=== PATIENT | male | born 1945 | race American Indian/Alaskan Native ===

== ENCOUNTER 2017-03-29 07:32 | Inpatient (IN) | payer OTHER ==
[2017-03-29 07:45] VITALS: BMI 26.6
[2017-03-29] MEDS ORDERED: METOCLOPRAMIDE HCL INJECTION 10 MG/2 ML VIAL IVPB ONE ×2 (08:00→13:47)
[2017-03-29] MEDS ORDERED: ASPIRIN 81 MG CHEWABLE TABLETS PO ONE (08:14)
--- NOTE | 2017-03-29 08:14 | PDOC ---
History of Present Illness - General History Source: Patient Exam Limitations: No Limitations - History of Present Illness Initial Comments: 03/29/17 08:45 The patient is a 72 year old male with a significant past medical history of hypertension (on quinapril) and borderline diabetes, who presents to the ER with lightheadedness since 6AM today. Patient states he was tired last night at the end of a busy day. He says he went to sleep without eating supper and woke up at 3AM to eat food. Patient fell back asleep and later woke up at 5AM to take his dog out to the backyard. He states he had an onset of lightheadedness at around 6AM. Patient reports accompanied nausea and several episodes of nonbilious/nonbloody vomiting. states that she tried to take patients BP but the machine was not able to read the pressure. On interview, patient states he continues to feel lightheaded. Patient reports his computer systems technician told the patient he may have a valve issue. Denies syncope Denies chest pain or pressure Denies taking any blood thinners Denies history of NC, catheterization Denies smoking or alcohol NKDA PCP: Dr. Hernández 03/29/17 09:21 <Sahra Langston - Last Filed: 03/29/17 09:26> <Hi Torres - Last Filed: 03/29/17 11:21> - General Chief Complaint: Lightheaded Stated Complaint: BLOOD PRESSURE PROBLEM/DIZZINESS/VOMITING Time Seen by Provider: 03/29/17 07:50 Past History <Sahra Langston - Last Filed: 03/29/17 09:26> - Past Medical History Diabetes: Yes HTN: Yes - Psycho/Social/Smoking Cessation Hx Anxiety: No Suicidal Ideation: No Smoking History: Never smoked Have you smoked in the past 12 months: No Information on smoking cessation initiated: No Hx Alcohol Use: No Drug/Substance Use Hx: No Substance Use Type: None <Hi Torres - Last Filed: 03/29/17 11:21> - Past Medical History Allergies/Adverse Reactions: Allergies Allergy/AdvReac Type Severity Reaction Status Date / Time No Known Allergies Allergy Verified 03/29/17 07:35 Review of Systems - Review of Systems Comments:: 03/29/17 09:15 CONSTITUTIONAL: Absent: fever, no chills, no fatigue EYES: Absent: visual changes ENT: Absent: ear pain, no sore throat CARDIOVASCULAR: Absent: chest pain, no palpitations RESPIRATORY: Absent: cough, no SOB GI: Present: Nausea, vomiting Absent: abdominal pain, no constipation, no diarrhea GENITOURINARY: Absent: dysuria, no frequency, no hematuria MUSCULOSKELETAL: Absent: back pain, no arthralgia, no myalgia SKIN: Absent: rash NEURO: Present; lightheadedness Absent: headache <ShaistaSahra harrison - Last Filed: 03/29/17 09:26> - Review of Systems Constitutional: No: Chills, Fever HEENTM: No: Recent change in vision, Double Vision Respiratory: No: Cough, Shortness of Breath Cardiac (ROS): Yes: Lightheadedness. No: Chest Pain, Edema, Syncope ABD/GI: Yes: Nausea, Vomiting. No: Diarrhea Neurological: No: Headache, Seizure, Ataxia All Other Systems: Reviewed and Negative <Hi Torres - Last Filed: 03/29/17 11:21> *Physical Exam - Vital Signs Last Vital Signs Temp Pulse Resp BP Pulse Ox 97 F L 56 L 16 181/92 100 03/29/17 07:35 03/29/17 08:36 03/29/17 08:36 03/29/17 08:36 03/29/17 08:36 - Physical Exam Comments: 03/29/17 09:16 GENERAL: The patient is awake, alert, and fully oriented, in no acute distress. HEAD: Normal with no signs of trauma. EYES: Pupils equal, round and reactive to light, extraocular movements intact, sclera anicteric, conjunctiva clear with no pallor. ENT: Ears normal, nares patent, oropharynx clear without exudates. Moist mucous membranes. NECK: Normal range of motion, supple without lymphadenopathy, JVD, or masses. LUNGS: Breath sounds equal, clear to auscultation bilaterally. No wheeze/ crackles. HEART: No murmurs, rhythm generates from regular with sinus to regular with bigeminy. No rub. ABDOMEN: Soft/nontender/nondistended. BS wnl. No guarding or rebound. No palpable masses. No hepatosplenomegaly. EXTREMITIES: Normal range of motion, no edema. No clubbing or cyanosis. No cords, erythema, or tenderness. NEUROLOGICAL: Cranial nerves II through XII grossly intact. Normal speech, normal gait. PSYCH: Normal mood, normal affect. SKIN: Warm, Dry, normal turgor, no rashes or lesions noted. <Sahra Langston - Last Filed: 03/29/17 09:26> - Vital Signs Last Vital Signs Temp Pulse Resp BP Pulse Ox 97 F L 34 L 18 197/68 89 L 03/29/17 07:35 03/29/17 07:35 03/29/17 07:35 03/29/17 07:35 03/29/17 07:35 <Hi Torres - Last Filed: 03/29/17 11:21> Heart Score/ECG Review #1 ECG reviewed & interpreted by me at: 07:44 Compared to previous ECG there are: No significant change 03/29/17 08:10 Sinus with PVCs in a bigeminy pattern, overall rate of 60. On the [place] beats, the QTC is within normal limits, there are Q waves in leads 3 and aVF, but there are no acute ST changes. <Hi Torres - Last Filed: 03/29/17 11:21> ED Treatment Course - LABORATORY CBC & Chemistry Diagram: 03/29/17 08:25 03/29/17 08:25 - ADDITIONAL ORDERS Additional order review: 03/29/17 08:25 RBC 4.86 MCV 84.9 MCHC 32.8 RDW 14.7 MPV 8.7 Neutrophils % 78.0 Lymphocytes % 14.8 Monocytes % 5.3 Eosinophils % 1.1 Basophils % 0.8 - Medications Given in the ED: ED Medications Discontinued Medications Generic Name Dose Route Start Last Admin Trade Name Freq PRN Reason Stop Dose Admin Aspirin 162 mg 03/29/17 08:14 03/29/17 08:35 Asa - PO 03/29/17 08:15 162 mg ONCE ONE Administration Metoclopramide HCl 10 mg 03/29/17 08:00 03/29/17 08:35 Reglan Injection - IVPB 03/29/17 08:01 10 mg ONCE ONE Administration <Sahra Langston - Last Filed: 03/29/17 09:26> - LABORATORY CBC & Chemistry Diagram: 03/29/17 08:25 03/29/17 08:25 - RADIOLOGY Radiology Studies Ordered: Category Date Time Status HEAD CT WITHOUT CONTRAST [CT] Stat CT Scan 03/29/17 08:00 Ordered CHEST X-RAY PORTABLE* [RAD] Stat Radiology 03/29/17 07:51 Ordered <Hi Torres - Last Filed: 03/29/17 11:21> Medical Decision Making - Critical Care Time Total Critical Care Time (minutes): 45 Critical Care Statement: The care of this patient involved high complexity decision making to prevent further life threatening deterioration of the patient 's condition and/or to evalute & treat vital organ system(s) failure or risk of failure. - Medical Decision Making 03/29/17 08:10 A portion of this note was documented by scribe services under my direction. I have reviewed the details of the note, within reason, and agree with the documentation with the following case summary and management plan written by me. 72-year-old male with history of only hypertension that is well controlled on an RUBIO inhibitor presents with lightheadedness and near syncope since last night , worse this morning. No associated chest pain or pressure, no focal neurological complaints, no actual syncope. Reports history of a valve problem on cardiology evaluation last year, but never required catheterization and has no known CAD. Not a smoker. Vitals as noted, blood pressure now 132/64 on monitor, heart rate 60s but ranges from sinus with regular pulse to sinus with PVCs and bigeminy, only weakly generated pulse on the ventricular beats Seated in stretcher, alert and following commands and speaking full sentences, but becomes lightheaded/symptomatic when goes into bigeminy rhythm Neurologically nonfocal 72-year-old male with lightheadedness in the setting of bradycardia arrhythmia with PVCs and bigeminy pattern. Most concerning for ACS equivalent, though no acute ST changes on the [place] beats of the EKG. Less likely focal neuro issue. Placed on monitor immediately Labs, EKG, chest x-ray CT head to rule out intracranial pathology Cardiology consult Admission 03/29/17 09:25 Labs are within normal limits, troponin negative. Chest x-ray notes large heart with prominent superior mediastinum and tortuous aorta. Never had chest pain, but given borderline blood pressure, will check CT chest to rule out dissection , begin admission. BP now 178 systolic, will give dose of labetalol for control. 03/29/17 11:11 CT head without acute pathology. CTA without evidence of aneurysm or dissection. Will proceed with admission, accepted for inpatient tele by Dr. Patterson, admitting for Dr. Hernández. Will consult cardiology. <Hi Torres - Last Filed: 03/29/17 11:21> *DC/Admit/Observation/Transfer - Attestations Scribe Attestion: 03/29/17 09:18 Documentation prepared by Sahra Langston, acting as medical sociologist for Hi Torres MD. <Sahra Langston - Last Filed: 03/29/17 09:26> - Discharge Dispostion Admit: Yes <Hi Torres - Last Filed: 03/29/17 11:21> Diagnosis at time of Disposition: Ventricular bigeminy, Near syncope - Discharge Dispostion Condition at time of disposition: Guarded - Referrals Referrals: Carlos Estrada MD [Primary Care Provider] -
[2017-03-29] MEDS ORDERED: METOCLOPRAMIDE HCL INJECTION 10 MG/2 ML VIAL ONE ×2 (08:29→13:48)
[2017-03-29] MEDS ORDERED: ASPIRIN 81 MG CHEWABLE TABLETS ONE (08:29)
[2017-03-29 08:37] LABS: BASOPHIL 0.8 % (0-2.0); EOSINOPHIL 1.1 % (0-4.5); MCH 27.9 pg (25.7-33.7); MCHC 32.8 g/dl (32.0-35.9); MEAN CELL VOLUME 84.9 fl (80-96); MEAN PLT VOLUME 8.7 fl (7.5-11.1); PLATELET COUNT 239 K/MM3 (134-434); RDW 14.7 % (11.9-15.9); WHITE BLOOD COUNT 9.1 K/mm3 (4.0-10.0)
--- NOTE | 2017-03-29 08:56 | EKG ---
Test Reason : Blood Pressure : / mmHG Vent. Rate : 063 BPM Atrial Rate : 063 BPM P-R Int : 162 ms QRS Dur : 104 ms QT Int : 468 ms P-R-T Axes : 041 -46 056 degrees QTc Int : 478 ms SINUS RHYTHM WITH FREQUENT PREMATURE VENTRICULAR COMPLEXES IN A PATTERN OF BIGEMINY POSSIBLE LEFT ATRIAL ENLARGEMENT LEFT AXIS DEVIATION LEFT VENTRICULAR HYPERTROPHY INFERIOR INFARCT , AGE UNDETERMINED ANTERIOR INFARCT , AGE UNDETERMINED ABNORMAL ECG NO PREVIOUS ECGS AVAILABLE Confirmed by ITZEL IZQUIERDO MD ([id number]) on 03/29/2017 8:56:37 AM Referred By: Confirmed By:ITZEL IZQUIERDO MD
[2017-03-29 09:05] LABS: ALBUMIN 3.8 g/dl (3.4-5.0); ANION GAP 6 (8-16); BILIRUBIN,TOTAL 0.5 mg/dL (0.2-1.0); CALCIUM 8.7 mg/dL (8.5-10.1); CO2 28 mmol/L (21-32); COCKROFT - GAULT 70.15; CREATININE 1.1 mg/dL (0.7-1.3); GLUCOSE,RANDOM 185 mg/dL (74-106); MAGNESIUM 2.2 mg/dL (1.8-2.4); SGOT/AST 21 U/L (15-37); SGPT/ALT 25 U/L (12-78)
[2017-03-29 09:08] LABS: ALK PHOS 115 U/L (45-117); TROPONIN I < 0.02 ng/ml (0.00-0.05)
[2017-03-29 09:11] LABS: INR 1.13 (0.82-1.09); PROTHROMBIN TIME (PATIENT) 12.5 SEC (9.98-11.88)
[2017-03-29] MEDS ORDERED: LABETALOL HCL 5 MG/1 ML (100MG/20 ML VIAL) IVPUSH ONE (09:39)
[2017-03-29] MEDS ORDERED: LABETALOL HCL 5 MG/1 ML (200MG/40ML VIAL) IVPB ONE (09:48)
--- NOTE | 2017-03-29 14:47 | CON.CARD ---
Consult Consult Specialty:: Cardiology Referred by:: Hospitalist Reason for Consultation:: Near syncope, ventricular bigeminy - History of Present Illness Chief Complaint: Light-headedness History of Present Illness: The patient is a 72 year old male with a significant past medical history of hypertension/HCVD, PVC and borderline diabetes, who presented to the ER with lightheadedness accompanied by nausea and several episodes of nonbilious/ nonbloody vomiting since resolved after Reglan. He also reports binocular diplopia, BP elevated, given Labetolol IV, denies chest pain, dyspnea, near or true syncope, palpitations, orthopnea, PND, LE edema or change in exercise capacity. He reports compliance with meds and diet, denies NSAID use. All: NKDA PCP: Dr. Hernández Business Support Assistant: Dr. Sukhjinder Burgos - History Source History Provided By: Patient Limitations to Obtaining History: No Limitations - Alcohol/Substance Use Hx Alcohol Use: No - Smoking History Smoking history: Never smoked Have you smoked in the past 12 months: No Home Medications - Allergies Allergies/Adverse Reactions: Allergies Allergy/AdvReac Type Severity Reaction Status Date / Time No Known Allergies Allergy Verified 03/29/17 07:35 Review of Systems - Review of Systems Neurological: reports: Dizziness Vital Signs: Vital Signs Temperature 97 F L 03/29/17 07:35 Pulse Rate 67 03/29/17 14:11 Respiratory Rate 16 03/29/17 14:11 Blood Pressure 160/83 03/29/17 14:11 O2 Sat by Pulse Oximetry (%) 99 03/29/17 14:11 Constitutional: Yes: No Distress, Calm Neck: Yes: Supple Respiratory: Yes: Regular, CTA Bilaterally Gastrointestinal: Yes: Normal Bowel Sounds, Soft Cardiovascular: Yes: Regular Rate and Rhythm JVD: No Carotid Bruit: No Heart Sounds: Yes: S1, S2 Murmur: Yes: Systolic Murmur, Grade 1 Edema: No - Other Data Labs, Other Data: INR, PTT INR 1.13 (0.82-1.09) 03/29/17 08:25 NSR LVH, LAD, PVC Ejection Fraction %: LVEF > or = 40 % Imaging - Results Chest X-ray: Report Reviewed (NAD) Cat Scan: Report Reviewed (Chest and abd/pelvic CT: Right-sided arch, no pathology HCT: Negative) Problem List - Problems (1) Near syncope Code(s): R55 - SYNCOPE AND COLLAPSE (2) Ventricular bigeminy Code(s): I49.9 - CARDIAC ARRHYTHMIA, UNSPECIFIED (3) Hypertensive cardiomyopathy Code(s): I11.9 - HYPERTENSIVE HEART DISEASE WITHOUT HEART FAILURE I42.9 - CARDIOMYOPATHY, UNSPECIFIED Qualifiers: Heart failure presence: without heart failure Qualified Code(s): I11.9 - Hypertensive heart disease without heart failure; I43 - Cardiomyopathy in diseases classified elsewhere (4) Binocular vision disorder with diplopia Code(s): H53.2 - DIPLOPIA Assessment/Plan 1. Near syncope, nausea, emesis likely vasovagal etiology 2. Hypertensive cardiomyopathy without failure 3. PVC, ventricular bigeminy 4. Binocular diplopia etiology to be determined P:1. Continue Accupril 40 qd, ASA 81 qd, add carvedilol 6.25 bid with uptitration as hemodynamics tolerate 2. F/u echocardiogram to assess LV and valve fxn, burnisher to assess arrhythmia burden, brain MRI 3. Antiemetics as needed 4. Patient to f/u with Dr. Burgos upon d/c 5. Thank you for consultative opportunity
[2017-03-29] MEDS: CARVEDILOL 6.25 MG TABLET (FP) PO SCH ×3 (16:00→21:05)
[2017-03-29] MEDS ORDERED: CARVEDILOL 3.125 MG TABLET (FP) ONE (17:20)
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
[2017-03-29] MEDS: INSULIN (NOVOLOG) ASPART 100 UNITS/ML 10ML VIAL SQ SCH (23:19)
[2017-03-30 08:10] LABS: BASOPHIL 0.5 % (0-2.0); EOSINOPHIL 1.9 % (0-4.5); MCH 28.1 pg (25.7-33.7); MCHC 33.3 g/dl (32.0-35.9); MEAN CELL VOLUME 84.2 fl (80-96); NEUTROPHILS 60.4 % (42.8-82.8); PLATELET COUNT 239 K/MM3 (134-434); RDW 14.7 % (11.9-15.9); WHITE BLOOD COUNT 10.1 K/mm3 (4.0-10.0)
[2017-03-30 09:05] LABS: ALBUMIN 3.5 g/dl (3.4-5.0); ALK PHOS 101 U/L (45-117); ANION GAP 13 (8-16); BILIRUBIN,TOTAL 0.6 mg/dL (0.2-1.0); CALCIUM 8.9 mg/dL (8.5-10.1); CO2 28 mmol/L (21-32); COCKROFT - GAULT 77.17; GLUCOSE,RANDOM 122 mg/dL (74-106); MAGNESIUM 2.2 mg/dL (1.8-2.4); PHOSPHOROUS 3.6 mg/dL (2.5-4.9); SGOT/AST 23 U/L (15-37); SGPT/ALT 22 U/L (12-78)
[2017-03-30] MEDS ORDERED: QUINAPRIL HCL 20 MG TABLET (FP) ONE (09:11)
[2017-03-30] MEDS: QUINAPRIL HCL 40 MG TABLET (FP) PO SCH (09:14)
[2017-03-30] MEDS: ENOXAPARIN NA (PORCINE) 40 MG/0.4 ML DISP.SYRIN SQ SCH (09:14)
[2017-03-30] MEDS: ASPIRIN 81 MG CHEWABLE TABLETS PO SCH (09:14)
[2017-03-30] MEDS: CARVEDILOL 6.25 MG TABLET (FP) PO SCH ×2 (09:14→22:01)
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
--- NOTE | 2017-03-30 09:59 | PN ---
Progress Note, Physician Chief Complaint: Events noted Not in distress History of Present Illness: Patient was seen and examined. Awake and alert. Chart was reviewed Denies chest pain, SOB or palpitations vision deficit as noted on medical records - Current Medication List Current Medications: Active Medications Aspirin (Asa -) 81 mg PO DAILY [facility] Last Admin: 03/30/17 09:14 Dose: 81 mg Carvedilol (Coreg -) 6.25 mg PO BID [facility] Last Admin: 03/30/17 09:14 Dose: 6.25 mg Enoxaparin Sodium (Lovenox -) 40 mg SQ DAILY [facility] Last Admin: 03/30/17 09:14 Dose: 40 mg Insulin Aspart (Novolog Vial) 0 units SQ ACHS [facility] PRN Reason: Protocol Last Admin: 03/29/17 23:19 Dose: Not Given Quinapril HCl (Accupril -) 40 mg PO DAILY [facility] Last Admin: 03/30/17 09:14 Dose: 40 mg - Objective Vital Signs: Vital Signs Temperature 98.2 F 03/30/17 05:46 Pulse Rate 56 L 03/30/17 05:46 Respiratory Rate 20 03/30/17 05:46 Blood Pressure 176/82 03/30/17 05:46 O2 Sat by Pulse Oximetry (%) 96 03/29/17 21:00 Neck: Yes: Supple Cardiovascular: Yes: Regular Rate and Rhythm, S1, S2 Respiratory: Yes: Diminished Gastrointestinal: Yes: Normal Bowel Sounds, Soft. No: Tenderness Edema: No Neurological: Yes: WNL Additional Findings/Remarks: Review of Systems Constitutional: Denies: Chills or Fever Cardiovascular: As noted above Respiratory: As noted above Gastrointestinal: Denies: Nausea, Vomiting, Diarrhea, Constipation, abdominal pain, melena, hematemesis Genitourinary: No symptoms reported Neurology: No seizures or syncope Labs: CBC, BMP 03/30/17 06:00 03/30/17 06:00 INR, PTT INR 1.13 (0.82-1.09) 03/29/17 08:25 Problem List - Problems (1) Binocular vision disorder with diplopia Code(s): H53.2 - DIPLOPIA (2) Hypertensive cardiomyopathy Code(s): I11.9 - HYPERTENSIVE HEART DISEASE WITHOUT HEART FAILURE I42.9 - CARDIOMYOPATHY, UNSPECIFIED Qualifiers: Heart failure presence: without heart failure Qualified Code(s): I11.9 - Hypertensive heart disease without heart failure; I43 - Cardiomyopathy in diseases classified elsewhere (3) Near syncope Code(s): R55 - SYNCOPE AND COLLAPSE (4) Ventricular bigeminy Code(s): I49.9 - CARDIAC ARRHYTHMIA, UNSPECIFIED Assessment/Plan 1. Near syncope, nausea, emesis likely vaso-vagal etiology 2. Hypertensive cardiovascular disease - cardiomyopathy 3. PVC and ventricular bigeminy 4. Binocular diplopia etiology to be determined PLAN: 1. Continue Accupril 40 mg, ASA 81 mg qd and Carvedilol 6.25 bid with uptitration as tolerated 2. Echocardiography revealed low normal left ventricular systolic function, impaired relaxation and mild MR 3. Brain MRI noted. Await Neurology input 4. Antiemetics as needed 4. Patient to follow up with Dr. Burgos upon discharge as per patient had family wishes Further plans are to follow Carlos Mobley MD
--- NOTE | 2017-03-30 10:39 | EKG ---
Test Reason : Blood Pressure : / mmHG Vent. Rate : 066 BPM Atrial Rate : 066 BPM P-R Int : 208 ms QRS Dur : 108 ms QT Int : 442 ms P-R-T Axes : 056 -36 071 degrees QTc Int : 463 ms NORMAL SINUS RHYTHM POSSIBLE LEFT ATRIAL ENLARGEMENT LEFT AXIS DEVIATION INCOMPLETE RIGHT BUNDLE BRANCH BLOCK INFERIOR INFARCT (CITED ON OR BEFORE 29-MAR-2017) ABNORMAL ECG WHEN COMPARED WITH ECG OF 29-MAR-2017 07:44, PREMATURE VENTRICULAR COMPLEXES ARE NO LONGER PRESENT Confirmed by AILYN JONES, ELLIOT ([id number]) on 03/30/2017 10:39:04 AM Referred By: Dolly CHIU Confirmed By:ELLIOT ROBERTSON MD
--- NOTE | 2017-03-30 12:28 | PN ---
Physical Exam: SUBJECTIVE: Patient seen and examined at bedside. Diplopia persists R>L. OBJECTIVE: Vital Signs Period Temp Pulse Resp BP Sys/Leung Pulse Ox Last 24 Hr 98.2 F-98.6 F 56-84 16-20 138-181/70-97 96-99 GENERAL: Awake, alert, and fully oriented, in no acute distress. HEAD: Normal with no signs of trauma. EYES: Pupils equal, round and reactive to light, extraocular movements intact, sclera anicteric, conjunctiva clear. No lid lag. LUNGS: Breath sounds equal, clear to auscultation bilaterally. No wheezes, and no crackles. No accessory muscle use. HEART: Regular rate and rhythm, normal S1 and S2 without murmur, rub or gallop. ABDOMEN: Soft, nontender, not distended, normoactive bowel sounds, no guarding, no rebound, no masses. No hepatomegaly or splenomegaly. MUSCULOSKELETAL: Normal range of motion at all joints. No bony deformities or tenderness. No CVA tenderness. UPPER EXTREMITIES: 2+ pulses, warm, well-perfused. No cyanosis. No clubbing. No peripheral edema. LOWER EXTREMITIES: 2+ pulses, warm, well-perfused. No calf tenderness. No peripheral edema. NEUROLOGICAL: Cranial nerves II-XII intact. Normal speech. Laboratory Results - last 24 hr 03/29/17 03/29/17 03/30/17 20:20 23:18 05:45 WBC RBC Hgb Hct MCV MCHC RDW Plt Count MPV Neutrophils % Lymphocytes % Monocytes % Eosinophils % Basophils % Sodium Potassium Chloride Carbon Dioxide Anion Gap BUN Creatinine Creat Clearance w eGFR POC Glucometer 174 140 Random Glucose Hemoglobin A1c % Calcium Phosphorus Magnesium Total Bilirubin AST ALT Alkaline Phosphatase Troponin I < 0.02 Total Protein Albumin 03/30/17 03/30/17 03/30/17 06:00 06:00 06:00 WBC 10.1 H RBC 4.50 Hgb 12.6 Hct 37.8 MCV 84.2 MCHC 33.3 RDW 14.7 Plt Count 239 MPV 9.0 Neutrophils % 60.4 D Lymphocytes % 29.7 D Monocytes % 7.5 Eosinophils % 1.9 Basophils % 0.5 Sodium 141 Potassium 3.9 D Chloride 100 Carbon Dioxide 28 Anion Gap 13 BUN 14 Creatinine 1.0 Creat Clearance w eGFR > 60 POC Glucometer Random Glucose 122 H D Hemoglobin A1c % 6.3 H Calcium 8.9 Phosphorus 3.6 Magnesium 2.2 Total Bilirubin 0.6 AST 23 ALT 22 Alkaline Phosphatase 101 Troponin I Total Protein 7.0 Albumin 3.5 Active Medications Generic Name Dose Route Start Last Admin Trade Name Mark PRN Reason Stop Dose Admin Aspirin 81 mg 03/30/17 10:00 03/30/17 09:14 Asa - PO 81 mg DAILY SINDI Administration Carvedilol 6.25 mg 03/29/17 15:45 03/30/17 09:14 Coreg - PO 6.25 mg BID SINDI Administration Enoxaparin Sodium 40 mg 03/30/17 10:00 03/30/17 09:14 Lovenox - SQ 40 mg DAILY SINDI Administration Insulin Aspart 0 units 03/29/17 22:00 03/29/17 23:19 Novolog Vial SQ Not Given ACHS [facility] Protocol Quinapril HCl 40 mg 03/30/17 10:00 03/30/17 09:14 Accupril - PO 40 mg DAILY SINDI Administration ASSESSMENT/PLAN 72 year-old male with a PMH of HTN and borderline diabetes admitted for symptomatic bradycardic dysrthymia with ventricular bigeminy. Found on MRI to have acute infarct x 2. Acute CVA Binocular diplopia CN Palsy --(1) nonhemorrhagic acute infarct left medial ventral surface of upper victor hugo 1.8mm x 4.4mm; (2) acute infarct in medial aspect of upper victor hugo extending to dorsal aspect 1.8mm x 12mm --continue ASA --discussed with Dr. Rivero (neuro) and Dr. Mobley (cardiology) Near syncope ACS ruled out --serial troponins negative --03/30: ECG NSR @ 66bpm, no PVCs; serial ECGs not suggestive of acute ischemic event --CTA negative for aneurysm or dissection --03/29 echo: LV function low normal, Grade I impaired relaxation; RV normal; mild MR --telemetry monitoring --cardiology following Hypertension --continue accupril, carvedilol 6.25mg BID but permissive HTN for now in view of CVA Borderline diabetes --HgbA1C 6.3 --d/c fingersticks, insulin coverage F/E/N Fluids: PO intake adequate Electrolytes: replete as indicated Nutrition: diabetic, low sodium diet Dispo: continues to require inpatient care. Full Code. Visit type - Emergency Visit Emergency Visit: Yes ED Registration Date: 03/29/17 Care time: The patient presented to the Emergency Department on the above date and was hospitalized for further evaluation of their emergent condition. - New Patient This patient is new to me today: No - Critical Care Critical Care patient: No
[2017-03-30] MEDS: INSULIN (NOVOLOG) ASPART 100 UNITS/ML 10ML VIAL SQ SCH (17:34)
--- NOTE | 2017-03-30 20:49 | PN ---
Progress Note (short form) - Note Progress Note: Pts. MRI report/images reviewed and explained to pt/family-acute infarct involving left medial ventral surface of the upper victor hugo not crossing the midline below the left cerebellar peduncle, approx. 1.8mmx 12mm acute infarct in the medial aspect of upper victor hugo not crossing the midline. No hge A&P Pt. has had acute pontine infarction in the territory of the [employer]/its branches, likely embolism from vertebro/basilar system. There appears to be no evidence clinically of vert/basilar dissection as pt. has not had any pain. 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 2) Cardiology consult-?? cardioembolic disease. 3) Echocardiogram 4) ASA 81 mg daily- no indication for anticiagulatiobn-fresh infarct/risk of hge. 5) MRA of the neck ordered.
[2017-03-31] MEDS ORDERED: QUINAPRIL HCL 20 MG TABLET (FP) ONE (08:56)
[2017-03-31] MEDS: QUINAPRIL HCL 40 MG TABLET (FP) PO SCH (09:34)
[2017-03-31] MEDS: ASPIRIN 81 MG CHEWABLE TABLETS PO SCH (09:34)
[2017-03-31] MEDS: CARVEDILOL 6.25 MG TABLET (FP) PO SCH (09:35)
[2017-03-31] MEDS: ENOXAPARIN NA (PORCINE) 40 MG/0.4 ML DISP.SYRIN SQ SCH (09:35)
--- NOTE | 2017-03-31 09:39 | PN ---
Progress Note, Physician History of Present Illness: Binocular diplopia improving, no further nausea or emesis. PCP: Dr. Hernández Marketing Operations Manager: Dr. Sukjhinder Burgos - Current Medication List Current Medications: Active Medications Aspirin (Asa -) 81 mg PO DAILY [facility] Last Admin: 03/31/17 09:34 Dose: 81 mg Carvedilol (Coreg -) 6.25 mg PO BID [facility] Last Admin: 03/31/17 09:35 Dose: 6.25 mg Enoxaparin Sodium (Lovenox -) 40 mg SQ DAILY [facility] Last Admin: 03/31/17 09:35 Dose: 40 mg Quinapril HCl (Accupril -) 40 mg PO DAILY [facility] Last Admin: 03/31/17 09:34 Dose: 40 mg - Objective Vital Signs: Vital Signs Temperature 98.6 F 03/31/17 06:00 Pulse Rate 56 L 03/31/17 06:00 Respiratory Rate 20 03/31/17 06:00 Blood Pressure 176/94 03/31/17 06:00 O2 Sat by Pulse Oximetry (%) 98 03/30/17 21:00 Constitutional: Yes: No Distress, Calm Neck: Yes: Supple, Tenderness Respiratory: Yes: Regular, CTA Bilaterally Gastrointestinal: Yes: Normal Bowel Sounds, Soft Edema: No Labs: CBC, BMP 03/30/17 06:00 03/30/17 06:00 INR, PTT INR 1.13 (0.82-1.09) 03/29/17 08:25 - ....Imaging EKG: Report Reviewed (Tele: SB, no PAF) Problem List - Problems (1) Ventricular bigeminy Code(s): I49.9 - CARDIAC ARRHYTHMIA, UNSPECIFIED (2) Hypertensive cardiomyopathy Code(s): I11.9 - HYPERTENSIVE HEART DISEASE WITHOUT HEART FAILURE I42.9 - CARDIOMYOPATHY, UNSPECIFIED Qualifiers: Heart failure presence: without heart failure Qualified Code(s): I11.9 - Hypertensive heart disease without heart failure; I43 - Cardiomyopathy in diseases classified elsewhere (3) Binocular vision disorder with diplopia Code(s): H53.2 - DIPLOPIA (4) Left pontine CVA Code(s): I63.50 - CEREB INFRC DUE TO UNSP OCCLS OR STENOS OF UNSP CEREB ARTERY Assessment/Plan TTE: Normal LV size with low normal LV fxn, mild MR, diastolic dysfxn Brain MRI -acute infarct involving left medial ventral surface of the upper victor hugo not crossing the midline below the left cerebellar peduncle, approx. 1.8mmx 12mm acute infarct in the medial aspect of upper victor hugo not crossing the midline. No hemorrhage 1. Acute left pontine stroke in [employer] territory 2. Hypertensive cardiomyopathy without failure, BP not at goal 3. PVC, ventricular bigeminy P:1. Change Accupril 40 qd to Diovan 160 qd, ASA 81 qd, increase carvedilol 12.5 bid with uptitration as hemodynamics tolerate 2. property assessment monitor to assess arrhythmia burden, f/u brain and neck MRA, check TSH and lipid panel 3. LESLIE in AM to r/o cardioembolic source 4. Patient to f/u with Dr. Burgos or locally upon d/c, patient choice 5. DVT prophylaxis
[2017-03-31] MEDS ORDERED: CARVEDILOL 6.25 MG TABLET (FP) PO ONE (11:00)
--- NOTE | 2017-03-31 11:14 | PN ---
Progress Note (short form) - Note Progress Note: Neurology FU : no new issues overnight; diplopia on R gaze though feels getting better; no DOCKERY BP. was not on ASA prior to this event. Vital Signs Temperature 98 F 03/31/17 10:00 Pulse Rate 62 03/31/17 10:00 Respiratory Rate 18 03/31/17 10:00 Blood Pressure 168/97 03/31/17 10:00 O2 Sat by Pulse Oximetry (%) 98 03/31/17 09:00 Exam: partial sixth R; rest exam NL. AP : left medial pontine infarct--small vessel (hypertensive ) vs embolic vs dissection. 1) MRA NECK 2) Cardiology -LESLIE, may require prolonged holter as outpt. 3) ASA 81 /statin/BP control--SBP 150-180 , ok for this time but will get more aggressive with this as outpt. Dr Cramer [phone]
[2017-03-31] MEDS: VALSARTAN 160 MG TABLET (UD) PO SCH (13:17)
--- NOTE | 2017-03-31 15:41 | PN ---
Physical Exam: SUBJECTIVE: Patient seen and examined at bedside. present. Diplopia slightly better, still present on right-side. OBJECTIVE: Vital Signs Period Temp Pulse Resp BP Sys/Leung Pulse Ox Last 24 Hr 97.8 F-98.6 F 55-62 16-20 154-176/78-97 98-98 GENERAL: Awake, alert, and fully oriented, in no acute distress. HEAD: Normal with no signs of trauma. EYES: Pupils equal, round and reactive to light, extraocular movements intact, sclera anicteric, conjunctiva clear. No lid lag. LUNGS: Breath sounds equal, clear to auscultation bilaterally. No wheezes, and no crackles. No accessory muscle use. HEART: Regular rate and rhythm, normal S1 and S2 without murmur, rub or gallop. ABDOMEN: Soft, nontender, not distended, normoactive bowel sounds, no guarding, no rebound, no masses. No hepatomegaly or splenomegaly. MUSCULOSKELETAL: Normal range of motion at all joints. No bony deformities or tenderness. No CVA tenderness. UPPER EXTREMITIES: 2+ pulses, warm, well-perfused. No cyanosis. No clubbing. No peripheral edema. LOWER EXTREMITIES: 2+ pulses, warm, well-perfused. No calf tenderness. No peripheral edema. NEUROLOGICAL: Cranial nerves II-XII intact. Normal speech. CBCD WBC 10.1 K/mm3 (4.0-10.0) H 03/30/17 06:00 RBC 4.50 M/mm3 (4.00-5.60) 03/30/17 06:00 Hgb 12.6 GM/dL (11.7-16.9) 03/30/17 06:00 Hct 37.8 % (35.4-49) 03/30/17 06:00 MCV 84.2 fl (80-96) 03/30/17 06:00 MCHC 33.3 g/dl (32.0-35.9) 03/30/17 06:00 RDW 14.7 % (11.9-15.9) 03/30/17 06:00 Plt Count 239 K/MM3 (134-434) 03/30/17 06:00 MPV 9.0 fl (7.5-11.1) 03/30/17 06:00 CMP Sodium 141 mmol/L (136-145) 03/30/17 06:00 Potassium 3.9 mmol/L (3.5-5.1) D 03/30/17 06:00 Chloride 100 mmol/L (98-107) 03/30/17 06:00 Carbon Dioxide 28 mmol/L (21-32) 03/30/17 06:00 Anion Gap 13 (8-16) 03/30/17 06:00 BUN 14 mg/dL (7-18) 03/30/17 06:00 Creatinine 1.0 mg/dL (0.7-1.3) 03/30/17 06:00 Creat Clearance w eGFR > 60 (>60) 03/30/17 06:00 Calcium 8.9 mg/dL (8.5-10.1) 03/30/17 06:00 Total Bilirubin 0.6 mg/dL (0.2-1.0) 03/30/17 06:00 AST 23 U/L (15-37) 03/30/17 06:00 ALT 22 U/L (12-78) 03/30/17 06:00 Alkaline Phosphatase 101 U/L (45-117) 03/30/17 06:00 Total Protein 7.0 g/dl (6.4-8.2) 03/30/17 06:00 Albumin 3.5 g/dl (3.4-5.0) 03/30/17 06:00 Active Medications Generic Name Dose Route Start Last Admin Trade Name Freq PRN Reason Stop Dose Admin Aspirin 81 mg 03/30/17 10:00 03/31/17 09:34 Asa - PO 81 mg DAILY SINDI Administration Atorvastatin Calcium 20 mg 03/31/17 22:00 Lipitor - PO HS SINDI Carvedilol 12.5 mg 03/31/17 22:00 Coreg - PO BID SINDI Enoxaparin Sodium 40 mg 03/30/17 10:00 03/31/17 09:35 Lovenox - SQ 40 mg DAILY SINDI Administration Valsartan 160 mg 03/31/17 10:00 03/31/17 13:17 Diovan - PO 160 mg DAILY SINDI Administration Imaging TTE: Normal LV size with low normal LV fxn, mild MR, diastolic dysfxn Brain MRI -acute infarct involving left medial ventral surface of the upper victor hugo not crossing the midline below the left cerebellar peduncle, approx. 1.8mmx 12mm acute infarct in the medial aspect of upper victor hugo not crossing the midline. No hemorrhage Brain MRA - patent carotid and vertebral arteries; no carotid stenosis; no mural thrombus ASSESSMENT/PLAN 72 year-old male with a PMH of HTN and borderline diabetes admitted for symptomatic bradycardic dysrthymia with ventricular bigeminy. Found on MRI to have acute infarct x 2. Acute left pontine infarct Binocular diplopia --MRA negative study --LESLIE tomorrow to r/o cardioembolic source --continue telemetry to assess arrhythmia burden --continue ASA Hypertension Cardiomyopathy without failure --SBP 150-180, ok for now --change Accupril 40 qd to Diovan 160 qd, ASA 81 qd, increase carvedilol 12.5 bid with uptitration as hemodynamics tolerate Borderline diabetes --HgbA1C 6.3 --d/c fingersticks, insulin coverage F/E/N Fluids: PO intake adequate Electrolytes: replete as indicated Nutrition: diabetic, low sodium diet DVT prophylaxis: lovenox, oob, ambulation Dispo: continues to require inpatient care. Full Code. Visit type - Emergency Visit Emergency Visit: Yes ED Registration Date: 03/29/17 Care time: The patient presented to the Emergency Department on the above date and was hospitalized for further evaluation of their emergent condition. - New Patient This patient is new to me today: No - Critical Care Critical Care patient: No
[2017-03-31] MEDS: ATORVASTATIN CA 20 MG TABLET (FP) PO SCH (21:32)
[2017-03-31] MEDS: CARVEDILOL 12.5 MG TABLET (FP) PO SCH (21:32)
[2017-04-01 07:33] LABS: THYROID STIMULATING HORMONE 1.82 uIU/ml (0.358-3.74)
[2017-04-01] MEDS: VALSARTAN 160 MG TABLET (UD) PO SCH ×2 (07:58→09:41)
[2017-04-01] MEDS: CARVEDILOL 12.5 MG TABLET (FP) PO SCH ×3 (07:58→20:00)
[2017-04-01] MEDS: ASPIRIN 81 MG CHEWABLE TABLETS PO SCH (09:37)
[2017-04-01] MEDS: ENOXAPARIN NA (PORCINE) 40 MG/0.4 ML DISP.SYRIN SQ SCH (09:37)
--- NOTE | 2017-04-01 10:21 | PN ---
Progress Note (short form) - Note Progress Note: Subjective: The patient was seen and examined at the bedside, he is awaiting LESLIE. BP elevated this AM, given Diovan and Coreg, will reevaluate whether to increase BP meds this PM Discussed with Dr. Cramer, if LESLIE results normal, can discharge Current Medications Generic Name Dose Route Start Last Admin Trade Name Mark PRN Reason Stop Dose Admin Aspirin 81 mg 03/30/17 10:00 04/01/17 09:37 Asa - PO 81 mg DAILY SINDI Administration Atorvastatin Calcium 20 mg 03/31/17 22:00 03/31/17 21:32 Lipitor - PO 20 mg HS SINDI Administration Carvedilol 12.5 mg 03/31/17 22:00 04/01/17 09:40 Coreg - PO Not Given BID SINDI Enoxaparin Sodium 40 mg 03/30/17 10:00 04/01/17 09:37 Lovenox - SQ 40 mg DAILY SINDI Administration Valsartan 160 mg 03/31/17 10:00 04/01/17 09:41 Diovan - PO Not Given DAILY SINDI Objective: Vital Signs Period Temp Pulse Resp BP Sys/Leung Pulse Ox Last 24 Hr 97.8 F-98.7 F 54-58 16-20 153-186/78-96 98 Physical Exam: General: NAD, A&Ox3 Lungs: CTA bilaterally Heart: RRR, S1S2 Abd: Soft, non-tender, non-distended. Normoactive bowel sounds Ext: Warm, well-perfused. 2+ DP/PT bilaterally CBCD WBC 10.1 K/mm3 (4.0-10.0) H 03/30/17 06:00 RBC 4.50 M/mm3 (4.00-5.60) 03/30/17 06:00 Hgb 12.6 GM/dL (11.7-16.9) 03/30/17 06:00 Hct 37.8 % (35.4-49) 03/30/17 06:00 MCV 84.2 fl (80-96) 03/30/17 06:00 MCHC 33.3 g/dl (32.0-35.9) 03/30/17 06:00 RDW 14.7 % (11.9-15.9) 03/30/17 06:00 Plt Count 239 K/MM3 (134-434) 03/30/17 06:00 MPV 9.0 fl (7.5-11.1) 03/30/17 06:00 CMP Sodium 141 mmol/L (136-145) 03/30/17 06:00 Potassium 3.9 mmol/L (3.5-5.1) D 03/30/17 06:00 Chloride 100 mmol/L (98-107) 03/30/17 06:00 Carbon Dioxide 28 mmol/L (21-32) 03/30/17 06:00 Anion Gap 13 (8-16) 03/30/17 06:00 BUN 14 mg/dL (7-18) 03/30/17 06:00 Creatinine 1.0 mg/dL (0.7-1.3) 03/30/17 06:00 Creat Clearance w eGFR > 60 (>60) 03/30/17 06:00 Random Glucose 122 mg/dL (74-106) H D 03/30/17 06:00 Calcium 8.9 mg/dL (8.5-10.1) 03/30/17 06:00 Total Bilirubin 0.6 mg/dL (0.2-1.0) 03/30/17 06:00 AST 23 U/L (15-37) 03/30/17 06:00 ALT 22 U/L (12-78) 03/30/17 06:00 Alkaline Phosphatase 101 U/L (45-117) 03/30/17 06:00 Total Protein 7.0 g/dl (6.4-8.2) 03/30/17 06:00 Albumin 3.5 g/dl (3.4-5.0) 03/30/17 06:00 CARDIAC ENZYMES Creatine Kinase 176 IU/L (39-308) 03/29/17 08:25 Troponin I < 0.02 ng/ml (0.00-0.05) 03/29/17 20:20 Imaging: Chest X-ray: large heart, tortuous aorta. Prominent superior mediastinum Head CT: No evidence of acute intracranial hemorrhage, edema, midline shift, mass effect, or skull fracture. No CT evidence of acute territorial infarction Chest/abd/pelvis CTA: Ride sided aortic arch with no evidence of thoracic aortic aneurysm or dissection. No evidence of abdominal aortic aneurysm or dissection. No acute pathology within the chest, abdomen, or pelvis TTE: Normal LV size with low normal LV fxn, mild MR, diastolic dysfxn Brain MRI -acute infarct involving left medial ventral surface of the upper victor hugo not crossing the midline below the left cerebellar peduncle, approx. 1.8mmx 12mm acute infarct in the medial aspect of upper victor hugo not crossing the midline. No hemorrhage Brain MRA - patent carotid and vertebral arteries; no carotid stenosis; no mural thrombus Assessment: This is a 72 year old male with PMHx HTN, pre-diabetes, who presented to the ED with lightheadedness, nausea, vomiting, double vision. Plan: 1) Neurology: Acute left medial pontine infarct - small vessel (hypertensive ) vs embolic vs dissection - LESLIE today to r/o cardioembolic source - Continue ASA - Continue Lipitor - Blood pressure control - Appreciate neurology consult 2) Cardiology: HTN - Remains hypertensive - Continue Diovan 160mg po daily - Continue Coreg 12.5mg po bid - Will reevaluate BP this PM and uptitrate meds as tolerated - Appreciate cardiology consult 3) Endocrine: Pre-diabetes - Hgb A1c 6.3 - Encouraged diet modifications and exercise 4) F/E/N: - NPO for LESLIE - Monitor electrolytes 5) Prophylaxis: - OOB ambulating - Lovenox 40mg sq daily 6) Dispo: - Requires continued inpatient care CODE STATUS: FULL CODE Visit type - Emergency Visit Emergency Visit: Yes ED Registration Date: 03/29/17 Care time: The patient presented to the Emergency Department on the above date and was hospitalized for further evaluation of their emergent condition. - New Patient This patient is new to me today: Yes Date on this admission: 04/01/17 - Critical Care Critical Care patient: No
--- NOTE | 2017-04-01 12:11 | PN ---
Progress Note (short form) - Note Progress Note: no new issues overnight; diplopia on R gaze though feels getting even better; no DOCKERY BP elevated . to get LESLIE today MRA NECK WNL was not on ASA prior to this event. Vital Signs Period Temp Pulse Resp BP Sys/Leung Pulse Ox Last 24 Hr 97.8 F-98.7 F 54-58 16-20 153-186/78-96 98 Exam: partial sixth R; rest exam NL. AP : left medial pontine infarct--small vessel (hypertensive ) vs embolic vs dissection. 1) MRA NECK WNL 2) Cardiology -LESLIE, may require prolonged holter as outpt. 3) ASA 81 /statin/BP control--please adjust BP RX ideally should be reduced by atleast 25 % of baseline prior to discharge and idealyy further optimize as an outpt. 4) neurologically cleared , if LESLIE (-) and outpt FU Dr Cramer [phone]
--- NOTE | 2017-04-01 13:50 | PN ---
Progress Note, Physician Chief Complaint: Events noted Not in distress For LESLIE today History of Present Illness: Patient was seen and examined. Awake and alert. Chart was reviewed Denies chest pain, SOB or palpitations - Current Medication List Current Medications: Active Medications Aspirin (Asa -) 81 mg PO DAILY [facility] Last Admin: 04/01/17 09:37 Dose: 81 mg Atorvastatin Calcium (Lipitor -) 20 mg PO HS [facility] Last Admin: 03/31/17 21:32 Dose: 20 mg Carvedilol (Coreg -) 12.5 mg PO BID [facility] Last Admin: 04/01/17 09:40 Dose: Not Given Enoxaparin Sodium (Lovenox -) 40 mg SQ DAILY [facility] Last Admin: 04/01/17 09:37 Dose: 40 mg Valsartan (Diovan -) 160 mg PO DAILY [facility] Last Admin: 04/01/17 09:41 Dose: Not Given - Objective Vital Signs: Vital Signs Temperature 98 F 04/01/17 09:00 Pulse Rate 56 L 04/01/17 09:00 Respiratory Rate 18 04/01/17 09:00 Blood Pressure 186/93 04/01/17 09:00 O2 Sat by Pulse Oximetry (%) 98 03/31/17 21:00 Neck: Yes: Supple Cardiovascular: Yes: Regular Rate and Rhythm, S1, S2 Respiratory: Yes: CTA Bilaterally Gastrointestinal: Yes: Normal Bowel Sounds, Soft. No: Tenderness Edema: No Additional Findings/Remarks: Review of Systems Constitutional: Denies: Chills or Fever Cardiovascular: As noted above Respiratory: As noted above Gastrointestinal: Denies: Nausea, Vomiting, Diarrhea, Constipation, abdominal pain, melena, hematemesis Genitourinary: No symptoms reported Neurology: No seizures or syncope Problem List - Problems (1) Binocular vision disorder with diplopia Code(s): H53.2 - DIPLOPIA (2) Hypertensive cardiomyopathy Code(s): I11.9 - HYPERTENSIVE HEART DISEASE WITHOUT HEART FAILURE I42.9 - CARDIOMYOPATHY, UNSPECIFIED Qualifiers: Heart failure presence: without heart failure Qualified Code(s): I11.9 - Hypertensive heart disease without heart failure; I43 - Cardiomyopathy in diseases classified elsewhere (3) Near syncope Code(s): R55 - SYNCOPE AND COLLAPSE (4) Ventricular bigeminy Code(s): I49.9 - CARDIAC ARRHYTHMIA, UNSPECIFIED Assessment/Plan 1. Near syncope, nausea, emesis likely vaso-vagal etiology 2. Hypertensive cardiovascular disease - cardiomyopathy 3. PVC and ventricular bigeminy 4. Binocular diplopia and infarct on MRI of brain PLAN: 1. Continue Diovan but increase to 320 mg once a day, ASA 81 mg qd and Carvedilol 12.5 bid with uptitration as tolerated 2. LESLIE scheduled today to rule out source of emboli 3. Continue Atorvastatin 4. Patient to follow up with Dr. Burgos upon discharge as per patient and family wishes 5. Neurology follow up Further plans are to follow Carlos Mobley MD
[2017-04-01] MEDS ORDERED: VALSARTAN 160 MG TABLET (UD) PO ONE (16:00)
[2017-04-01] MEDS: ATORVASTATIN CA 20 MG TABLET (FP) PO SCH (21:27)
[2017-04-02] MEDS ORDERED: hydrALAZINE HCL 10 MG TABLET PO ONE (03:09)
--- NOTE | 2017-04-02 05:50 | HOSP ---
Subjective - Review of Symptoms Events since last encounter: patient hypertensive, systolic high 180's Subjective: Patient here for stroke and near syncope, with poorly controlled BP. Family at bedside. Evening BP high 180's systolic. Denies h/a, chest pain, palpitations, dizziness, change in neuro status. General: No: Malaise HEENT: No: Head Aches, Visual Changes Pulmonary: No: Dyspnea Cardiovascular: No: Chest Pain, Palpitations, Orthopnea Gastrointestinal: No: Nausea, Vomiting Musculoskeletal: No: Muscle Weakness Neurological: No: Weakness, Numbness, Change in speech, Confusion, Seizures Physical Examination Vital Signs: Vital Signs Temperature 98.6 F 04/02/17 05:00 Pulse Rate 60 04/02/17 05:00 Respiratory Rate 20 04/02/17 05:00 Blood Pressure 163/88 04/02/17 05:00 O2 Sat by Pulse Oximetry (%) 96 04/01/17 21:00 Constitutional: Yes: Well Nourished, No Distress, Calm Eyes: Yes: Conjunctiva Clear, EOM Intact, PERRL HENT: Yes: Atraumatic, Normocephalic Neck: Yes: Supple Cardiovascular: Yes: Regular Rate and Rhythm, S1, S2 Respiratory: Yes: CTA Bilaterally Gastrointestinal: Yes: Normal Bowel Sounds Peripheral Pulses: Left Radial: 2+, Right Radial: 2+ Neurological: Yes: Alert, Oriented, Cran Nerves II-XII Intact (grossly). No: Confusion, Facial Droop ...Motor Strength: WNL Psychiatric: Yes: Alert, Oriented. No: Agitated Labs: CBC, BMP 03/30/17 06:00 03/30/17 06:00 Hospitalist Encounter Assessment: Uncontrolled HTn in setting or recent stroke -Per neuro recommendation, BP should be brought down to at least 25% below baseline which was 185 systolic before d/c -BP 180's systolic, patient already maxed on on diovan, given coreg 12.5 early -BP brought down to 168 systolic, Hydralazine 10 PO given to yield BP 160 systolic which is acceptable for d/c -Recommend adding Norvasc 10 daily to outpatient meds as there is little room with regard to heart rate to increase coreg. -initial BP goals of 150-160 systolic explained to patient and family, voice understanding -requires close neuro, cardio and pcp f/u outpatient Outcome: BP controlled to 160 systolic Visit type - Emergency Visit Emergency Visit: Yes ED Registration Date: 03/29/17 Care time: The patient presented to the Emergency Department on the above date and was hospitalized for further evaluation of their emergent condition. - New Patient This patient is new to me today: Yes Date on this admission: 04/02/17 - Critical Care Critical Care patient: No
[2017-04-02] MEDS: VALSARTAN 160 MG TABLET (UD) PO SCH (07:48)
[2017-04-02] MEDS: CARVEDILOL 12.5 MG TABLET (FP) PO SCH ×2 (07:49→09:48)
--- NOTE | 2017-04-02 09:39 | PN ---
Progress Note, Physician History of Present Illness: Binocular diplopia resolved, no further nausea or emesis. PCP: Dr. Hernández Alliance Manager: Dr. Sukhjinder Burgos - Current Medication List Current Medications: Active Medications Aspirin (Asa -) 81 mg PO DAILY [facility] Last Admin: 04/01/17 09:37 Dose: 81 mg Atorvastatin Calcium (Lipitor -) 20 mg PO HS [facility] Last Admin: 04/01/17 21:27 Dose: 20 mg Carvedilol (Coreg -) 12.5 mg PO BID [facility] Last Admin: 04/02/17 07:49 Dose: 12.5 mg Enoxaparin Sodium (Lovenox -) 40 mg SQ DAILY [facility] Last Admin: 04/01/17 09:37 Dose: 40 mg Valsartan (Diovan -) 320 mg PO DAILY [facility] Last Admin: 04/02/17 07:48 Dose: 320 mg - Objective Vital Signs: Vital Signs Temperature 98.2 F 04/02/17 07:30 Pulse Rate 58 L 04/02/17 07:30 Respiratory Rate 14 04/02/17 07:30 Blood Pressure 189/99 04/02/17 07:30 O2 Sat by Pulse Oximetry (%) 96 04/01/17 21:00 Constitutional: Yes: No Distress, Calm Neck: Yes: Supple Cardiovascular: Yes: Regular Rate and Rhythm Respiratory: Yes: Regular, CTA Bilaterally Gastrointestinal: Yes: Normal Bowel Sounds, Soft Edema: No Labs: CBC, BMP 03/30/17 06:00 03/30/17 06:00 INR, PTT INR 1.13 (0.82-1.09) 03/29/17 08:25 - ....Imaging EKG: Report Reviewed (Tele: NSR) Problem List - Problems (1) Ventricular bigeminy Code(s): I49.9 - CARDIAC ARRHYTHMIA, UNSPECIFIED (2) Hypertensive cardiomyopathy Code(s): I11.9 - HYPERTENSIVE HEART DISEASE WITHOUT HEART FAILURE I42.9 - CARDIOMYOPATHY, UNSPECIFIED Qualifiers: Heart failure presence: without heart failure Qualified Code(s): I11.9 - Hypertensive heart disease without heart failure; I43 - Cardiomyopathy in diseases classified elsewhere (3) Binocular vision disorder with diplopia Code(s): H53.2 - DIPLOPIA (4) Left pontine CVA Code(s): I63.50 - CEREB INFRC DUE TO UNSP OCCLS OR STENOS OF UNSP CEREB ARTERY Assessment/Plan TTE: Normal LV size with low normal LV fxn, mild MR, diastolic dysfxn Brain MRI -acute infarct involving left medial ventral surface of the upper victor hugo not crossing the midline below the left cerebellar peduncle, approx. 1.8mmx 12mm acute infarct in the medial aspect of upper victor hugo not crossing the midline. No hemorrhage LESLIE Risks including, but not limited to esophageal injury discussed with patient. Consent was obtained Preliminary result are as follows: 1. Low normal left ventricular systolic function 2. Mild mitral valve regurgitation 3. LA appendage was not fully visualized due to its small size and difficulty with visualization, however; likely appears normal 4. No evidence of intracardiac shunt via color Doppler and agitated saline injection 5. No pericardial effusion is seen 6. Small atherosclerotic plaques in thoracic aorta and aortic arch 7. No pericardial effusion 1. Acute left pontine stroke 2. Hypertensive cardiovascular disease BP not at goal 3. PVC and ventricular bigeminy 4. Binocular diplopia and infarct on MRI of brain PLAN: 1. Continue Diovan 320 mg qd, ASA 81 mg qd and Carvedilol 12.5 bid, add Norvasc 5 qd 2. Continue Atorvastatin 20 qhs 3. D/c planning, event recorder as outpatient r/o PAF
[2017-04-02] MEDS: ASPIRIN 81 MG CHEWABLE TABLETS PO SCH (09:48)
[2017-04-02] MEDS: ENOXAPARIN NA (PORCINE) 40 MG/0.4 ML DISP.SYRIN SQ SCH (09:48)
[2017-04-02] MEDS ORDERED: amLODIPine BESYLATE 5 MG TABLET (FP) PO SCH (12:00)
[2017-04-02] MEDS: CHLORTHALIDONE 25 MG TABLET PO SCH (12:07)
--- NOTE | 2017-04-02 13:58 | PN ---
Progress Note (short form) - Note Progress Note: no new issues overnight; diplopia on R gaze almost resolved ; no DOCKERY BP elevated , norvasc added MRA NECK WNL ; LESLIE (-) was not on ASA prior to this event. Vital Signs Temperature 98.2 F 04/02/17 07:30 Pulse Rate 62 04/02/17 10:45 Respiratory Rate 14 04/02/17 10:45 Blood Pressure 185/93 04/02/17 10:45 O2 Sat by Pulse Oximetry (%) 96 04/02/17 09:00 Exam: partial sixth R; rest exam NL. AP : left medial pontine infarct--small vessel (hypertensive ) vs embolic vs dissection. 1) MRA NECK WNL , LESLIE(-), agree with prolonged outpt holter 2) ASA 81 /statin/BP control--optimize as an outpt. 3) neurologically cleared for DC Dr Cramer [phone]
--- NOTE | 2017-04-02 15:09 | PN ---
Progress Note (short form) - Note Progress Note: Subjective: The patient was seen and examined at the bedside, his blood pressure remains elevated Discussed with Dr. Calabrese, chlorthalidone added Current Medications Generic Name Dose Route Start Last Admin Trade Name Mark PRN Reason Stop Dose Admin Aspirin 81 mg 03/30/17 10:00 04/02/17 09:48 Asa - PO 81 mg DAILY SINDI Administration Atorvastatin Calcium 20 mg 03/31/17 22:00 04/01/17 21:27 Lipitor - PO 20 mg HS SINDI Administration Carvedilol 12.5 mg 03/31/17 22:00 04/02/17 09:48 Coreg - PO Not Given BID SINDI Chlorthalidone 25 mg 04/02/17 11:30 04/02/17 12:07 Hygroton - PO 25 mg DAILY SINDI Administration Enoxaparin Sodium 40 mg 03/30/17 10:00 04/02/17 09:48 Lovenox - SQ 40 mg DAILY SINDI Administration Valsartan 320 mg 04/02/17 07:30 04/02/17 07:48 Diovan - PO 320 mg DAILY SINDI Administration Objective: Vital Signs Period Temp Pulse Resp BP Sys/Leung Pulse Ox Last 24 Hr 98 F-98.6 F 55-62 14-20 154-199/76-99 96-96 Physical Exam: General: NAD, A&Ox3 Lungs: CTA bilaterally Heart: RRR, S1S2 Abd: Soft, non-tender, non-distended. Normoactive bowel sounds Ext: Warm, well-perfused. 2+ DP/PT bilaterally CBCD WBC 10.1 K/mm3 (4.0-10.0) H 03/30/17 06:00 RBC 4.50 M/mm3 (4.00-5.60) 03/30/17 06:00 Hgb 12.6 GM/dL (11.7-16.9) 03/30/17 06:00 Hct 37.8 % (35.4-49) 03/30/17 06:00 MCV 84.2 fl (80-96) 03/30/17 06:00 MCHC 33.3 g/dl (32.0-35.9) 03/30/17 06:00 RDW 14.7 % (11.9-15.9) 03/30/17 06:00 Plt Count 239 K/MM3 (134-434) 03/30/17 06:00 MPV 9.0 fl (7.5-11.1) 03/30/17 06:00 CMP Sodium 141 mmol/L (136-145) 03/30/17 06:00 Potassium 3.9 mmol/L (3.5-5.1) D 03/30/17 06:00 Chloride 100 mmol/L (98-107) 03/30/17 06:00 Carbon Dioxide 28 mmol/L (21-32) 03/30/17 06:00 Anion Gap 13 (8-16) 03/30/17 06:00 BUN 14 mg/dL (7-18) 03/30/17 06:00 Creatinine 1.0 mg/dL (0.7-1.3) 03/30/17 06:00 Creat Clearance w eGFR > 60 (>60) 03/30/17 06:00 Random Glucose 122 mg/dL (74-106) H D 03/30/17 06:00 Calcium 8.9 mg/dL (8.5-10.1) 03/30/17 06:00 Total Bilirubin 0.6 mg/dL (0.2-1.0) 03/30/17 06:00 AST 23 U/L (15-37) 03/30/17 06:00 ALT 22 U/L (12-78) 03/30/17 06:00 Alkaline Phosphatase 101 U/L (45-117) 03/30/17 06:00 Total Protein 7.0 g/dl (6.4-8.2) 03/30/17 06:00 Albumin 3.5 g/dl (3.4-5.0) 03/30/17 06:00 CARDIAC ENZYMES Creatine Kinase 176 IU/L (39-308) 03/29/17 08:25 Troponin I < 0.02 ng/ml (0.00-0.05) 03/29/17 20:20 Imaging: Chest X-ray: large heart, tortuous aorta. Prominent superior mediastinum Head CT: No evidence of acute intracranial hemorrhage, edema, midline shift, mass effect, or skull fracture. No CT evidence of acute territorial infarction Chest/abd/pelvis CTA: Ride sided aortic arch with no evidence of thoracic aortic aneurysm or dissection. No evidence of abdominal aortic aneurysm or dissection. No acute pathology within the chest, abdomen, or pelvis TTE: Normal LV size with low normal LV fxn, mild MR, diastolic dysfxn Brain MRI -acute infarct involving left medial ventral surface of the upper victor hugo not crossing the midline below the left cerebellar peduncle, approx. 1.8mmx 12mm acute infarct in the medial aspect of upper victor hugo not crossing the midline. No hemorrhage Brain MRA - patent carotid and vertebral arteries; no carotid stenosis; no mural thrombus Assessment: This is a 72 year old male with PMHx HTN, pre-diabetes, who presented to the ED with lightheadedness, nausea, vomiting, double vision. Plan: 1) Neurology: Acute left medial pontine infarct - small vessel (hypertensive ) vs embolic vs dissection - LESLIE with love normal left ventricular systolic function, mild mitral valve regurg, LA appendage appears normal, - Continue ASA - Continue Lipitor - Blood pressure control - Appreciate neurology consult 2) Cardiology: HTN - Remains hypertensive - Continue Diovan increased to 320mg po daily - Continue Coreg 12.5mg po bid - Added Chlorthalidone today - Appreciate cardiology consult 3) Endocrine: Pre-diabetes - Hgb A1c 6.3 - Encouraged diet modifications and exercise 4) F/E/N: - Diabetic/sodium controlled diet - Monitor electrolytes 5) Prophylaxis: - OOB ambulating - Lovenox 40mg sq daily 6) Dispo: - Requires continued inpatient care CODE STATUS: FULL CODE Visit type - Emergency Visit Emergency Visit: Yes ED Registration Date: 03/29/17 Care time: The patient presented to the Emergency Department on the above date and was hospitalized for further evaluation of their emergent condition. - New Patient This patient is new to me today: No - Critical Care Critical Care patient: No
[2017-04-02] MEDS ORDERED: CARVEDILOL 25 MG TABLET (FP) PO ONE (16:16)
[2017-04-02] MEDS: ATORVASTATIN CA 20 MG TABLET (FP) PO SCH (22:03)
[2017-04-03] MEDS ORDERED: PT OWN MED DRAWER 7, Y5N ONE (08:51)
[2017-04-03] MEDS: ASPIRIN 81 MG CHEWABLE TABLETS PO SCH (09:00)
[2017-04-03] MEDS: CHLORTHALIDONE 25 MG TABLET PO SCH (09:00)
[2017-04-03] MEDS: VALSARTAN 160 MG TABLET (UD) PO SCH (09:01)
[2017-04-03] MEDS: ENOXAPARIN NA (PORCINE) 40 MG/0.4 ML DISP.SYRIN SQ SCH (09:01)
[2017-04-03] MEDS ORDERED: CARVEDILOL 25 MG TABLET (FP) PO SCH (10:00)
--- NOTE | 2017-04-03 10:05 | PN ---
Progress Note (short form) - Note Progress Note: no new issues overnight; diplopia on R gaze resolved ; no DOCKERY BP elevated , norvasc and chlorothalidone added, RENAL Doppler -- ? R renal artery stenosis --vascular FU MRA NECK WNL ; LESLIE (-) was not on ASA prior to this event. Vital Signs Temperature 97.8 F 04/03/17 09:00 Pulse Rate 57 L 04/03/17 09:00 Respiratory Rate 18 04/03/17 09:00 Blood Pressure 150/77 04/03/17 09:02 O2 Sat by Pulse Oximetry (%) 96 04/02/17 21:00 Exam: partial sixth R-resolving ; rest exam NL. AP : left medial pontine infarct/resolved right sixth--small vessel ( hypertensive ) vs embolic ; no dissection. recalcitrant hypertension neurolgically stable 1) MRA NECK WNL , LESLIE(-), agree with prolonged outpt holter 2) ASA 81 /statin/BP control-- cardiology following and r/o other factors for persistently elevated BP -- ROSALBA, ? adrenal BABIN Dr rCamer [phone]
--- NOTE | 2017-04-03 12:11 | PN ---
Progress Note (short form) - Note Progress Note: Subjective: The patient was seen and examined at the bedside, his blood pressure remains elevated Renal ultrasound with right main renal artery demonstrating borderline findings of a hemodynamically significant stenosis. No left main renal artery stenosis noted Current Medications Generic Name Dose Route Start Last Admin Trade Name Mark PRN Reason Stop Dose Admin Aspirin 81 mg 03/30/17 10:00 04/03/17 09:00 Asa - PO 81 mg DAILY SINDI Administration Atorvastatin Calcium 20 mg 03/31/17 22:00 04/02/17 22:03 Lipitor - PO 20 mg HS SINDI Administration Carvedilol 25 mg 04/03/17 10:00 04/03/17 09:01 Coreg - PO 25 mg BID SINDI Administration Chlorthalidone 25 mg 04/02/17 11:30 04/03/17 09:00 Hygroton - PO 25 mg DAILY SINDI Administration Enoxaparin Sodium 40 mg 03/30/17 10:00 04/03/17 09:01 Lovenox - SQ 40 mg DAILY SINDI Administration Valsartan 320 mg 04/02/17 07:30 04/03/17 09:01 Diovan - PO 320 mg DAILY SINDI Administration Objective: Vital Signs Period Temp Pulse Resp BP Sys/Leung Pulse Ox Last 24 Hr 97.5 F-99.2 F 54-74 14-20 146-198/77-99 96-99 Physical Exam: General: NAD, A&Ox3 Lungs: CTA bilaterally Heart: RRR, S1S2 Abd: Soft, non-tender, non-distended. Normoactive bowel sounds Ext: Warm, well-perfused. 2+ DP/PT bilaterally CBCD WBC 10.1 K/mm3 (4.0-10.0) H 03/30/17 06:00 RBC 4.50 M/mm3 (4.00-5.60) 03/30/17 06:00 Hgb 12.6 GM/dL (11.7-16.9) 03/30/17 06:00 Hct 37.8 % (35.4-49) 03/30/17 06:00 MCV 84.2 fl (80-96) 03/30/17 06:00 MCHC 33.3 g/dl (32.0-35.9) 03/30/17 06:00 RDW 14.7 % (11.9-15.9) 03/30/17 06:00 Plt Count 239 K/MM3 (134-434) 03/30/17 06:00 MPV 9.0 fl (7.5-11.1) 03/30/17 06:00 CMP Sodium 141 mmol/L (136-145) 03/30/17 06:00 Potassium 3.9 mmol/L (3.5-5.1) D 03/30/17 06:00 Chloride 100 mmol/L (98-107) 03/30/17 06:00 Carbon Dioxide 28 mmol/L (21-32) 03/30/17 06:00 Anion Gap 13 (8-16) 03/30/17 06:00 BUN 14 mg/dL (7-18) 03/30/17 06:00 Creatinine 1.0 mg/dL (0.7-1.3) 03/30/17 06:00 Creat Clearance w eGFR > 60 (>60) 03/30/17 06:00 Random Glucose 122 mg/dL (74-106) H D 03/30/17 06:00 Calcium 8.9 mg/dL (8.5-10.1) 03/30/17 06:00 Total Bilirubin 0.6 mg/dL (0.2-1.0) 03/30/17 06:00 AST 23 U/L (15-37) 03/30/17 06:00 ALT 22 U/L (12-78) 03/30/17 06:00 Alkaline Phosphatase 101 U/L (45-117) 03/30/17 06:00 Total Protein 7.0 g/dl (6.4-8.2) 03/30/17 06:00 Albumin 3.5 g/dl (3.4-5.0) 03/30/17 06:00 CARDIAC ENZYMES Creatine Kinase 176 IU/L (39-308) 03/29/17 08:25 Troponin I < 0.02 ng/ml (0.00-0.05) 03/29/17 20:20 Imaging: Chest X-ray: large heart, tortuous aorta. Prominent superior mediastinum Head CT: No evidence of acute intracranial hemorrhage, edema, midline shift, mass effect, or skull fracture. No CT evidence of acute territorial infarction Chest/abd/pelvis CTA: Ride sided aortic arch with no evidence of thoracic aortic aneurysm or dissection. No evidence of abdominal aortic aneurysm or dissection. No acute pathology within the chest, abdomen, or pelvis TTE: Normal LV size with low normal LV fxn, mild MR, diastolic dysfxn Brain MRI -acute infarct involving left medial ventral surface of the upper victor hugo not crossing the midline below the left cerebellar peduncle, approx. 1.8mmx 12mm acute infarct in the medial aspect of upper victor hugo not crossing the midline. No hemorrhage Brain MRA - patent carotid and vertebral arteries; no carotid stenosis; no mural thrombus Assessment: This is a 72 year old male with PMHx HTN, pre-diabetes, who presented to the ED with lightheadedness, nausea, vomiting, double vision. Plan: 1) Neurology: Acute left medial pontine infarct - small vessel (hypertensive ) vs embolic vs dissection - LESLIE with love normal left ventricular systolic function, mild mitral valve regurg, LA appendage appears normal, - Continue ASA - Continue Lipitor - Blood pressure control - Appreciate neurology consult 2) Cardiology: HTN - Remains hypertensive - Continue Diovan increased to 320mg po daily - Increased Coreg to 25mg po bid - Added Chlorthalidone yesterday - Consider adding aldactone if remains hypertensive - Appreciate cardiology consult Right renal artery stenosis - As evidence on ultrasound - Informed the patient of findings and recommended CTA to evaluate degree of stenosis further. The patient has refused further imaging at this time - F/u vascular surgery consult 3) Endocrine: Pre-diabetes - Hgb A1c 6.3 - Encouraged diet modifications and exercise 4) F/E/N: - Diabetic/sodium controlled diet - Monitor electrolytes 5) Prophylaxis: - OOB ambulating - Lovenox 40mg sq daily 6) Dispo: - Requires continued inpatient care CODE STATUS: FULL CODE Visit type - Emergency Visit Emergency Visit: Yes ED Registration Date: 03/29/17 Care time: The patient presented to the Emergency Department on the above date and was hospitalized for further evaluation of their emergent condition. - New Patient This patient is new to me today: No - Critical Care Critical Care patient: No
[2017-04-03 13:52] LABS: CALCIUM 8.8 mg/dL (8.5-10.1); COCKROFT - GAULT 64.31; CREATININE 1.2 mg/dL (0.7-1.3)
--- NOTE | 2017-04-03 17:18 | CONSULT ---
Consult - Alcohol/Substance Use Hx Alcohol Use: No - Smoking History Smoking history: Never smoked Have you smoked in the past 12 months: No Home Medications - Allergies Allergies/Adverse Reactions: Allergies Allergy/AdvReac Type Severity Reaction Status Date / Time No Known Allergies Allergy Verified 03/29/17 07:35 - Home Medications Home Medications: Ambulatory Orders Aspirin [ASA -] 81 mg PO DAILY #30 tab.chew 04/01/17 Atorvastatin Ca [Lipitor] 20 mg PO HS #30 tablet 04/01/17 Carvedilol [Coreg -] 12.5 mg PO BID #60 tablet 04/01/17 Valsartan 320 mg PO DAILY #30 tablet 04/01/17 Chlorthalidone [Hygroton -] 25 mg PO DAILY #30 tablet 04/02/17 Physical Exam Vital Signs: Vital Signs Temperature 98.2 F 04/03/17 14:13 Pulse Rate 56 L 04/03/17 14:13 Respiratory Rate 20 04/03/17 14:13 Blood Pressure 156/86 04/03/17 14:13 O2 Sat by Pulse Oximetry (%) 99 04/03/17 09:00 Labs: CBC, BMP 03/30/17 06:00 04/03/17 12:56 Assessment/Plan Vascular Surgery The patient is a 72 year old male with a significant past medical history of hypertension (on quinapril) and borderline diabetes, who presents to the ER with lightheadedness since 6AM today. Patient states he was tired last night at the end of a busy day. He says he went to sleep without eating supper and woke up at 3AM to eat food. Patient fell back asleep and later woke up at 5AM to take his dog out to the backyard. He states he had an onset of lightheadedness at around 6AM. Patient reports accompanied nausea and several episodes of nonbilious/nonbloody vomiting. states that she tried to take patients BP but the machine was not able to read the pressure. On interview, patient states he continues to feel lightheaded. Patient reports his electrical wirer told the patient he may have a valve issue. Denies syncope Denies chest pain or pressure Denies taking any blood thinners Denies history of [place], catheterization Denies smoking or alcohol NKDA Renal US -- shows borderline stenosis of the right renal artery PE Head - NC/At Lung - CTA heart - RRR abd - soft,nt,nd ext - warm, pink. Palpable pulses. A/P R/O right renal artery stenosis 1. US shows borderline stenosis. Pt on 3 BP meds to control pressure. Explained to pt that CTA of renals would be gold standard exam. Pt wants to work up the renals down the line. Also sees Dr. Suarez at [facility] and can get workup there. No acute vascular intervention needed Vivek Oreilly DO
--- NOTE | 2017-04-03 17:24 | DS ---
Physical Examination Vital Signs: Vital Signs Temperature 98.2 F 04/03/17 14:13 Pulse Rate 56 L 04/03/17 14:13 Respiratory Rate 20 04/03/17 14:13 Blood Pressure 156/86 04/03/17 14:13 O2 Sat by Pulse Oximetry (%) 99 04/03/17 09:00 Findings/Remarks: Physical Exam: General: NAD, A&Ox3 Lungs: CTA bilaterally Heart: RRR, S1S2 Abd: Soft, non-tender, non-distended. Normoactive bowel sounds Ext: Warm, well-perfused. 2+ DP/PT bilaterally Labs: CBC, BMP 03/30/17 06:00 04/03/17 12:56 Discharge Summary Reason For Visit: VENTRICULAR BIGEMINY Current Active Problems Binocular vision disorder with diplopia (Acute) Hypertensive cardiomyopathy (Acute) Left pontine CVA (Acute) Near syncope (Acute) Ventricular bigeminy (Acute) Hospital Course: Imaging: Chest X-ray: large heart, tortuous aorta. Prominent superior mediastinum Head CT: No evidence of acute intracranial hemorrhage, edema, midline shift, mass effect, or skull fracture. No CT evidence of acute territorial infarction Chest/abd/pelvis CTA: Ride sided aortic arch with no evidence of thoracic aortic aneurysm or dissection. No evidence of abdominal aortic aneurysm or dissection. No acute pathology within the chest, abdomen, or pelvis TTE: Normal LV size with low normal LV fxn, mild MR, diastolic dysfxn Brain MRI -acute infarct involving left medial ventral surface of the upper victor hugo not crossing the midline below the left cerebellar peduncle, approx. 1.8mmx 12mm acute infarct in the medial aspect of upper victor hugo not crossing the midline. No hemorrhage Brain MRA - patent carotid and vertebral arteries; no carotid stenosis; no mural thrombus Assessment: This is a 72 year old male with PMHx HTN, pre-diabetes, who presented to the ED with lightheadedness, nausea, vomiting, double vision. Plan: 1) Neurology: Acute left medial pontine infarct - small vessel (hypertensive ) vs embolic vs dissection - LESLIE with normal left ventricular systolic function, mild mitral valve regurg, LA appendage appears normal, - Continue ASA - Continue Lipitor - Blood pressure control - Appreciate neurology consult 2) Cardiology: HTN - HTN improving - Diovan 320mg daily - Coreg 25mg po bid - Chlorthalidone - Appreciate cardiology consult Right renal artery stenosis - As evidence on ultrasound - Informed the patient of findings and recommended CTA to evaluate degree of stenosis further. The patient has refused further imaging at this time - F/u vascular surgery consult 3) Endocrine: Pre-diabetes - Hgb A1c 6.3 - Encouraged diet modifications and exercise Discussed with Dr. Vivek Oreilly who recommends CTA to evaluate degree of stenosis. The patient is refusing this test at this time stating he will follow- up with his manager balance as an outpatient. Instructed the patient to follow-up with pcp, cardiology, neurology, and vascular surgery. Please return to the ED with new, persistent, or worsening symptoms. This discharge took 45 minutes to complete. Condition: Improved - Instructions Diet, Activity, Other Instructions: Please return to the ED with new, persistent, or worsening symptoms. Please follow-up with providers as indicated. Referrals: Roverto Hernández MD [Staff Physician] - 1 Week () Manuelito Cramer DO [Staff Physician] - (Please follow-up with cardiology within 2-3 days. ) Vivek Oreilly MD [Staff Physician] - (Please follow-up with Dr. Oreilly (vascular surgery) for further evaluation of your borderline right renal artery stenosis ) Benji Calabrese MD [Staff Physician] - (Please follow-up with cardiology within 2 -3 days for further cardiac evaluation. ) Disposition: HOME - Home Medications Comprehensive Discharge Medication List: Ambulatory Orders Aspirin [ASA -] 81 mg PO DAILY #30 tab.chew 04/01/17 Atorvastatin Ca [Lipitor] 20 mg PO HS #30 tablet 04/01/17 Valsartan 320 mg PO DAILY #30 tablet 04/01/17 Chlorthalidone [Hygroton -] 25 mg PO DAILY #30 tablet 04/02/17 Carvedilol [Coreg] 25 mg PO BID #60 tablet 04/03/17 This patient is new to me today: No Emergency Visit: Yes ED Registration Date: 03/29/17 Care time: The patient presented to the Emergency Department on the above date and was hospitalized for further evaluation of their emergent condition. Critical Care patient: No - Discharge Referral Referred to [facility] No
[2017-04-03 19:30] VITALS: BP 150/85; PULSE 57; TEMP 98.8
--- NOTE | 2017-04-05 15:10 | PN ---
Progress Note (short form) - Note Progress Note: Spoke with [phone], he developed total body rash and anaphylactic shock to medications, denies angioedema, uncertain which of the new medications is the culprit. Will resume prior Accupril 40 qd regimen despite subpotimal BP control and borderline right renal artery stenosis and hold on all other medications until after he sees purchasing assistant and undergoes allergy testing to determine culprit medication. He will follow-up with me in office, d/ w . Problem List - Problems (1) Ventricular bigeminy Code(s): I49.9 - CARDIAC ARRHYTHMIA, UNSPECIFIED (2) Hypertensive cardiomyopathy Code(s): I11.9 - HYPERTENSIVE HEART DISEASE WITHOUT HEART FAILURE I42.9 - CARDIOMYOPATHY, UNSPECIFIED Qualifiers: Heart failure presence: without heart failure Qualified Code(s): I11.9 - Hypertensive heart disease without heart failure; I43 - Cardiomyopathy in diseases classified elsewhere (3) Binocular vision disorder with diplopia Code(s): H53.2 - DIPLOPIA (4) Left pontine CVA Code(s): I63.50 - CEREB INFRC DUE TO UNSP OCCLS OR STENOS OF UNSP CEREB ARTERY
== END 2017-04-03 18:09 | disposition home or self-care (01) | DRG 308 ==
LOC: JER 07:32 → JERBED 11:21 → J4W 19:57
PROVIDERS: ADMIT Internal Medicine; ATTEND Registered Nurse
PROC: B246ZZ4 Ultrasonography of Right and Left Heart, Transesophageal (ICD-10-PCS; principal; 2017-04-01 12:30)
DX: I49.8 Other specified cardiac arrhythmias (principal); I63.9 Cerebral infarction, unspecified; R73.03 Prediabetes; R55 Syncope and collapse; I49.3 Ventricular premature depolarization; I11.9 Hypertensive heart disease without heart failure; H53.2 Diplopia; R11.2 Nausea with vomiting, unspecified; I70.1 Atherosclerosis of renal artery
CPT/HCPCS: 36415; 70450-TC; 70544-TC; 70547-TC; 70551-TC; 71010-TC; 71275-TC; 74174-TC; 76775-TC; 80048; 80053; 80061; 82550; 82553; 83036; 83721; 83735; 84100; 84443; 84484; 85025; 85610; 86850; 86900; 86901; 93005; 93010; 93306-TC; 93312; 93325; 93976; 99283-25